=== PATIENT | male | born 1995 | race Caucasian/White ===

== ENCOUNTER 2017-10-18 20:09 | Emergency (ER) | payer BC, OTHER ==
[~2017-10-18] VITALS: Ht 185.4 cm; Wt 83.9 kg
[~2017-10-18 20:09] MED LIST: SULF1TAB38 PO
--- NOTE | 2017-10-18 20:48 | ED Neck-Back Pain/Injury ---
General Chief Complaint: Head/Cervical Problems Stated Complaint: HEAD INJ Nursing Triage Note: PATIENT STATES THAT HE WIPED OUT WHILE LONGBOARDING TODAY WHEN HIS BOARD HIT A PATCH OF GRAVEL. NO LOSS OF CONSCIOUSNESS. THERE ARE ABRASIONS TO HIS POSTERIOR SIDE OF HIS HEAD. 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 Pt states he was going "too fast" and flipped off of his longboard and rolled a couple of times, states that he had ~ a 1 sec LOC and was temporarily unable to move any extremities. Currently reports GRANADOS, neck pain, chest wall pain but denies any new vision changes, n/v, loss of bowel/bladder function, hearing changes, or any other associated sx. Pt shortly thereafter got up and walked a few blocks until someone was able to pick him up and bring him here. Pt states that he did smoke some marijuana prior to longboarding this evening. Pt placed in C-Collar here in ED during exam. (GHASSAN CHILDRESS MEDICAL STUDENT) Allergies and Home Medications Allergies Coded Allergies: No Known Drug Allergies (Unverified Allergy, Mild, 11/19/09) Home Medications Trimethoprim/Sulfamethoxazole 1 Ea Tablet, 1 EA PO BID, #20 FOR INFECTION Prescribed by: TANA LEDEZMA on 03/13/13 0536 Constitutional: No chills, No dizziness, No fever, other (Headache) EENTM: other (neck pain), No ear discharge, No hearing loss, No ear pain, No blurred vision, No double vision Respiratory: no symptoms reported, No cough, No dyspnea on exertion, No hemoptysis, No short of breath Cardiovascular: no symptoms reported, No chest pain, No edema, No palpitations Gastrointestinal: no symptoms reported, No abdominal pain, No constipation, No diarrhea, No loss of appetite, No nausea Genitourinary: no symptoms reported, No dysuria, No frequency Musculoskeletal: back pain, neck pain Skin: no symptoms reported, No change in color, No rash Psychiatric/Neurological: Headache, Denies Seizure (GHASSAN CHILDRESS MEDICAL STUDENT ) All Other Systems Reviewed Negative Unless Noted: Yes (Negative excepted noted.) (GHASSAN CHILDRESS MEDICAL STUDENT) Past Dobotdg-Vbgjsq-Kecdab Hx Patient Social History Alcohol Use: Rarely Uses Recreational Drug Use: Yes Drug of Choice: MARIJUANA Smoking Status: Current Everyday Smoker Type Used: Cigarettes 2nd Hand Smoke Exposure: Yes Recent Foreign Travel: No Contact w/Someone Who Travel: No Recent Infectious Disease Expo: No Recent Hopitalizations: No Physical Abuse: No Sexual Abuse: No (GHASSAN CHILDRESS MEDICAL STUDENT) Seasonal Allergies Seasonal Allergies: No (GHASSAN CHILDRESS MEDICAL STUDENT) Surgeries History of Surgeries: Yes Surgeries: Tonsillectomy (GHASSAN CHILDRESS MEDICAL STUDENT) Respiratory History of Respiratory Disorde: No (GHASSAN CHILDRESS MEDICAL STUDENT) Cardiovascular History of Cardiac Disorders: No (GHASSAN CHILDRESS MEDICAL STUDENT) Neurological History of Neurological Disord: Yes (GHASSAN CHILDRESS MEDICAL STUDENT) Reproductive System Sexually Transmitted Disease: No (GHASSAN CHILDRESS MEDICAL STUDENT) Genitourinary History of Genitourinary Disor: No (GHASSAN CHILDRESS MEDICAL STUDENT) Gastrointestinal History of Gastrointestinal Di: No (GHASSAN CHILDRESS MEDICAL STUDENT) Musculoskeletal History of Musculoskeletal Dis: No (GHASSAN CHILDRESS MEDICAL STUDENT) Endocrine History of Endocrine Disorders: No (GHASSAN CHILDRESS MEDICAL STUDENT) HEENT History of HEENT Disorders: No (GHASSAN CHILDRESS MEDICAL STUDENT) Cancer History of Cancer: No (GHASSAN CHILDRESS MEDICAL STUDENT) Psychosocial History of Psychiatric Problem: No Suicide Risk Score: 0 (GHASSAN CHILDRESS MEDICAL STUDENT) Integumentary History of Skin or Integumenta: No (GHASSAN CHILDRESS MEDICAL STUDENT) Blood Transfusions History of Blood Disorders: No (GHASSAN CHILDRESS MEDICAL STUDENT) Physical Exam Vital Signs Vital Sign - Last 12Hours 10/18/17 20:16 Temp 98.2 Pulse 96 B/P (MAP) 130/89 (103) Pulse Ox 94 O2 Delivery Room Air (ELIU MCKINNEY MD) Vital Signs Capillary Refill : Less Than 3 Seconds (GHASSAN CHILDRESS MEDICAL STUDENT) Skin: Other (3x4 cm oval abraision on the R occiput) (GHASSAN CHILDRESS MEDICAL STUDENT) General Appearance: No Apparent Distress HEENT: PERRL/EOMI, TMs Normal (partially obscured by cerumen), Pharynx Normal, Other (no dental injury. Macerated skin with localized tenderness and edema on the occiput. 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 Patient reports he fell while long boarding within the wheels of his board went off the sidewalk. He struck the occiput of his head on the sidewalk and rolled. He has generalized discomfort on the anterior chest and neck. He has a macerated wound on the occiput of his head with slight oozing of blood. There is no laceration to repair. He reports it took several minutes for him to be able to get up and walk. He felt "paralyzed" for a brief period of time. He does not believe there was loss of consciousness and if there was it was only a matter of seconds. CT of the head and C-spine was unremarkable. Patient was offered pain medication but declined. Concussion precautions were reviewed prior to dismissal. (ELIU MCKINNEY MD) Diagnostic Imaging Diagonstic Imaging: CT Plain Films/CT/US/NM/MRI: c-spine, head Comments CT head and C-spine viewed by me and report reviewed. See report below: NAME: [facility] REC#: [id number] PT STATUS: REG ER : 1995 PHYSICIAN: ELIU MCKINNEY MD ADMIT DATE: 10/18/17/ER Signed Date of Exam: 10/18/17 CT HEAD/CERVICAL SPINE WO PROCEDURE: CT head and CT cervical spine without contrast. TECHNIQUE: Multiple contiguous axial images were obtained through the brain and cervical spine without the use of intravenous contrast. Sagittal and coronal reformations through the cervical spine were then performed. INDICATION: Fall. Head laceration with headache and neck pain. FINDINGS: There is no CT evidence of acute intracranial hemorrhage. There is no evidence of abnormal extra-axial fluid collection. There is no mass effect or shift. Ventricles are appropriate in size and configuration. The basilar cisterns are patent. Escalante-white differentiation appears preserved. There is no calvarial fracture demonstrated. The mastoid air cells appear clear. The paranasal sinuses appear clear. The orbital contents are unremarkable. There appears to be a small degree of soft tissue swelling overlying the right parietal region. Cervical spine demonstrates reversal of the cervical lordosis but the alignment of the cervical spine is normal. There is normal alignment of the craniocervical junction with a normal relationship of the lateral masses of C1 and C2. The facets are normally aligned. There is no abnormal facet joint or disc space widening. There is no abnormal thickening of the prevertebral soft tissues. The vertebral body heights appear maintained. There is no acute cervical spine fracture demonstrated. Lung apices are clear. Soft tissues of the neck demonstrate no significant abnormality. IMPRESSION: 1. No CT evidence of an acute intracranial abnormality. 2. No evidence of calvarial fracture 3. Reversal of the cervical lordosis without evidence of traumatic malalignment or acute cervical spine fracture. Dictated by: Dictated on workstation # [id number] Dict: 10/18/172101 Trans: 10/18/172158 Interpreted by: EMY HARRIS MD Electronically signed by: EMY HARRIS MD 10/18/172158 (ELIU MCKINNEY MD) Departure Impression Impression: Primary Impression: Concussion without loss of consciousness Qualified Codes: S06.0X0A - Concussion without loss of consciousness, initial encounter Disposition: 01 HOME, SELF-CARE Condition: Stable Departure-Patient Inst. Decision time for Depature: 22:00 (ELIU MCKINNEY MD) Referrals: NO,LOCAL PHYSICIAN (PCP/Family) Primary Care Physician Patient Instructions: Concussion, Adult (DC) Add. Discharge Instructions: Observe mental rest over the next couple of days. This includes relative rest from mental stress, screen time, work, etc. Avoid activities that could cause further head injury for at least 7 days after you're concussion symptoms resolve. These activities would include use of ladders or any heights, long boarding, bike riding, contact sports, etc. Return to care promptly if you have worsening of symptoms including change of vision, confusion, worsening headache, nausea, irritability, significant sleep disturbances, or anything else you feel is unusual. Please follow-up with your doctor within one week. May use ibuprofen up to 600 mg every 6 hours as needed for pain. You may also use Tylenol (acetaminophen) up to 1000 mg every 6 hours as needed for additional pain relief. You may apply ice to your head contusion in 20 minute intervals as needed. All discharge instructions reviewed with patient and/or family. Voiced understanding. GHASSAN CHILDRESS MEDICAL STUDENT Oct 18, 2017 20:48 ELIU MCKINNEY MD Oct 18, 2017 22:00
--- NOTE | 2017-10-18 21:11 | Diagnostic Imaging Report ---
PROCEDURE: CT head and CT cervical spine without contrast. TECHNIQUE: Multiple contiguous axial images were obtained through the brain and cervical spine without the use of intravenous contrast. Sagittal and coronal reformations through the cervical spine were then performed. INDICATION: Fall. Head laceration with headache and neck pain. FINDINGS: There is no CT evidence of acute intracranial hemorrhage. There is no evidence of abnormal extra-axial fluid collection. There is no mass effect or shift. Ventricles are appropriate in size and configuration. The basilar cisterns are patent. Escalante-white differentiation appears preserved. There is no calvarial fracture demonstrated. The mastoid air cells appear clear. The paranasal sinuses appear clear. The orbital contents are unremarkable. There appears to be a small degree of soft tissue swelling overlying the right parietal region. Cervical spine demonstrates reversal of the cervical lordosis but the alignment of the cervical spine is normal. There is normal alignment of the craniocervical junction with a normal relationship of the lateral masses of C1 and C2. The facets are normally aligned. There is no abnormal facet joint or disc space widening. There is no abnormal thickening of the prevertebral soft tissues. The vertebral body heights appear maintained. There is no acute cervical spine fracture demonstrated. Lung apices are clear. Soft tissues of the neck demonstrate no significant abnormality. IMPRESSION: 1. No CT evidence of an acute intracranial abnormality. 2. No evidence of calvarial fracture 3. Reversal of the cervical lordosis without evidence of traumatic malalignment or acute cervical spine fracture. Dictated by: Dictated on workstation # [id number]
[2017-10-18] MEDS ORDERED: TETANUS,DIPTH,PERTUSS P/F (BOOSTRIX) 0.5 ML VIAL IM ONE (22:00)
[2017-10-18 22:16] VITALS: BP 130/89
--- OUTSIDE RECORDS SUMMARY | 2017-10-19 13:35 | XMS REPORT ---
Author Author MERY JONES [facility] Address [address] [place] [address] Care Team Providers Care Shaper Machine Hand Name Role Phone MERY JONES Unavailable PROBLEMS Type Condition ICD9-CM Code [id number] Code Onset Dates Condition Status SNOMED Code Problem Addiction, marijuana F12.20 Active 44481529 Problem Oppositional defiant disorder 313.81 Active 81892083 ALLERGIES Unknown Allergies SOCIAL HISTORY No smoking Hx information available PLAN OF CARE Activity Details Follow Up 1 Week Reason: VITAL SIGNS MEDICATIONS Unknown Medications RESULTS No Results PROCEDURES Procedure Date Ordered Related Diagnosis Body Site Psychotherapy, patient &/family, 60 minutes, established patient Nov 03, 2016 IMMUNIZATIONS No Known Immunizations
--- OUTSIDE RECORDS SUMMARY | 2017-10-19 13:35 | XMS REPORT ---
Author Author MERY JONES [facility] Address [address] [place] [address] Care Team Providers Care Board Lining Machine Operator Name Role Phone MERY JONES Unavailable PROBLEMS Type Condition ICD9-CM Code [id number] Code Onset Dates Condition Status SNOMED Code Problem Addiction, marijuana F12.20 Active 39648970 Problem Oppositional defiant disorder 313.81 Active 77560312 ALLERGIES No Information SOCIAL HISTORY Never Assessed PLAN OF CARE VITAL SIGNS MEDICATIONS Unknown Medications RESULTS No Results PROCEDURES No Known procedures IMMUNIZATIONS No Known Immunizations
--- OUTSIDE RECORDS SUMMARY | 2017-10-19 13:35 | XMS REPORT ---
Author Author MERY JONES [facility] Address [address] [place] [address] Care Team Providers Care Label Stitcher Name Role Phone MERY JONES Unavailable PROBLEMS Type Condition ICD9-CM Code [id number]-NR Code Onset Dates Condition Status SNOMED Code Problem Addiction, marijuana F12.20 Active 30633222 Problem Oppositional defiant disorder 313.81 Active 43687948 ALLERGIES Unknown Allergies SOCIAL HISTORY No smoking Hx information available PLAN OF CARE VITAL SIGNS MEDICATIONS Unknown Medications RESULTS No Results PROCEDURES No Known procedures IMMUNIZATIONS No Known Immunizations
--- OUTSIDE RECORDS SUMMARY | 2017-10-19 13:35 | XMS REPORT ---
Author Author MERY JONES [facility] Address [address] [place] [address] Care Team Providers Care Business Excellence Leader Name Role Phone MERY JONES Unavailable PROBLEMS Type Condition ICD9-CM Code IAV85-ZK Code Onset Dates Condition Status SNOMED Code Problem Addiction, marijuana F12.20 Active 97000305 Problem Oppositional defiant disorder 313.81 Active 94666238 ALLERGIES Unknown Allergies SOCIAL HISTORY No smoking Hx information available PLAN OF CARE Activity Details Follow Up 1 Week Reason: VITAL SIGNS MEDICATIONS Unknown Medications RESULTS No Results PROCEDURES Procedure Date Ordered Related Diagnosis Body Site Psychotherapy, patient &/family, 45 minutes, established patient Oct 20, 2016 IMMUNIZATIONS No Known Immunizations
--- OUTSIDE RECORDS SUMMARY | 2017-10-19 13:35 | XMS REPORT ---
Author Author MERY JONES Organization [employer] Address Unknown Phone Unavailable Care Team Providers Care Node Js Developer Name Role Phone MERY JONES Unavailable Allergies No Known Allergies Problems Problem Type Condition Code Onset Dates Condition Status Assessment Counseling on substance use and abuse Z71.89 Active Problem Oppositional defiant disorder 313.81 Active Medications No Known Medications Procedures Procedure Coding System Code Date ALCOHOL AND/OR DRUG ASSESSMENT CPT-4 H0001 Jul 19, 2016 Results No Known Results Summary Purpose [employer] Submission
--- OUTSIDE RECORDS SUMMARY | 2017-10-19 13:35 | XMS REPORT ---
Author Author MERY JONES [facility] Address [address] [place] [address] Care Team Providers Care Form Tamper Name Role Phone MERY JONES Unavailable PROBLEMS Type Condition ICD9-CM Code ZWW47-UZ Code Onset Dates Condition Status SNOMED Code Problem Addiction, marijuana F12.20 Active 36470133 Problem Oppositional defiant disorder 313.81 Active 32928290 ALLERGIES Unknown Allergies SOCIAL HISTORY No smoking Hx information available PLAN OF CARE Activity Details Follow Up 1 Week Reason: VITAL SIGNS MEDICATIONS Unknown Medications RESULTS No Results PROCEDURES Procedure Date Ordered Related Diagnosis Body Site Psychotherapy, patient &/family, 60 minutes, established patient Oct 26, 2016 IMMUNIZATIONS No Known Immunizations
--- OUTSIDE RECORDS SUMMARY | 2017-10-19 13:35 | XMS REPORT ---
Author Author MERY JONES Organization [facility] Address [address] [place] [address] Care Team Providers Care Gas Turbine Mechanic Name Role Phone MERY JONES Unavailable PROBLEMS Type Condition ICD9-CM Code BUA75-GW Code Onset Dates Condition Status SNOMED Code Problem Addiction, marijuana F12.20 Active 49121935 Problem Oppositional defiant disorder 313.81 Active 98370059 ALLERGIES No Information SOCIAL HISTORY Never Assessed PLAN OF CARE Activity Details Follow Up 1 Week Reason: VITAL SIGNS MEDICATIONS Unknown Medications RESULTS No Results PROCEDURES Procedure Date Ordered Result Body Site Psychotherapy, patient &/family, 30 minutes, established patient Dec 02, 2016 IMMUNIZATIONS No Known Immunizations
--- OUTSIDE RECORDS SUMMARY | 2017-10-19 13:35 | XMS REPORT ---
Author Author MERY JONES [facility] Address [address] [place] [address] Care Team Providers Care Weapons Engineer Name Role Phone MERY JONES Unavailable PROBLEMS Type Condition ICD9-CM Code EUS58-CE Code Onset Dates Condition Status SNOMED Code Problem Addiction, marijuana F12.20 Active 41982212 Problem Oppositional defiant disorder 313.81 Active 81035552 ALLERGIES No Information SOCIAL HISTORY Never Assessed PLAN OF CARE Activity Details Follow Up 2 - 3 Days Reason: VITAL SIGNS MEDICATIONS Unknown Medications RESULTS No Results PROCEDURES Procedure Date Ordered Result Body Site Psychotherapy, patient &/family, 45 minutes, established patient Nov 30, 2016 IMMUNIZATIONS No Known Immunizations
== END 2017-10-18 22:16 | disposition home or self-care (01) ==
LOC: EDUNIT# 20:09 → ER 20:12
DX: S06.0X1A Concussion with loss of consciousness of 30 minutes or less, initial encounter (principal); F17.210 Nicotine dependence, cigarettes, uncomplicated; Z23 Encounter for immunization; Z90.89 Acquired absence of other organs; V00.131A Fall from skateboard, initial encounter; Y93.51 Activity, roller skating (inline) and skateboarding
CPT/HCPCS: 70450; 72125; 99282

== ENCOUNTER → 2019-01-19 | Outpatient (CLI) | payer BC, OTHER ==
[~2019-01-19] MED LIST changes: +CATHETER FLUSH 10 ML SYR IV PRN; +HOLD METFORMIN - RECEIVED CONTRAST 20 ML VIAL IV SCH; +IOHEXOL 350 MG/ML 100 ML (OMNIPAQUE 350) VIAL IV ONE
--- NOTE | 2019-01-19 17:54 | Diagnostic Imaging Report ---
PROCEDURE: CT lumbar spine without contrast. TECHNIQUE: Multiple contiguous axial images were obtained through the lumbar spine without the use of intravenous contrast. Sagittal and coronal reformations were then performed. Auto Exposure Controls were utilized during the CT exam to meet ALARA standards for radiation dose reduction. INDICATION: Low back pain. COMPARISON: None. FINDINGS: Alignment is normal. There is no subluxation or fracture. No obvious broad-based disc bulge or herniation is seen. There is no osseous lesion or degeneration. There is no paraspinous mass. Visualized SI joints are normal. IMPRESSION: Negative CT of the lumbar spine. Report was called to Masha Ramirez APRN at 5:53 p.m. by pavithra (for COLLEEN). Dictated by: Dictated on workstation # [id number]
--- NOTE | 2019-01-19 17:54 | Diagnostic Imaging Report ---
PROCEDURE: CT pelvis without contrast. TECHNIQUE: Multiple contiguous axial images were obtained through the pelvis without the use of intravenous contrast. Sagittal and coronal reformations were performed. Auto Exposure Controls were utilized during the CT exam to meet ALARA standards for radiation dose reduction. INDICATION: Trauma, pelvic pain. COMPARISON: None. FINDINGS: The hips are symmetrical bilaterally. There is no fracture or dislocation. SI joints are intact. There is no osseous lesion. The visualized sacrum and coccyx are grossly normal. There is some minimal fluid within the subcutaneous tissues posterior to the paraspinous muscles. This could represent a hematoma. There is no hyperdense fluid that would indicate active hemorrhage. IMPRESSION: 1. No fracture or dislocation. 2. Subcutaneous hematoma as described. Report was called to Masha Ramirez APRN at 5:53 p.m. by pavithra (for COLLEEN). Dictated by: Dictated on workstation # [id number]
--- NOTE | 2019-01-19 17:55 | Diagnostic Imaging Report ---
PROCEDURE: CT abdomen and pelvis with contrast. TECHNIQUE: Multiple contiguous axial images were obtained through the abdomen and pelvis after administration of intravenous contrast. Auto Exposure Controls were utilized during the CT exam to meet ALARA standards for radiation dose reduction. INDICATION: Trauma. COMPARISON: None. FINDINGS: Lung bases are clear. The gallbladder, solid organs, vascular structures, and bowel are normal. There is no free air or free fluid. No hematoma is identified. There is some fluid in the subcutaneous tissues across the lumbar region at the midline. No hyperdense fluid is seen that would indicate an active hemorrhage. IMPRESSION: 1. Subcutaneous fluid posterior to the lumbar region. 2. No underlying bony abnormality. 3. No intra-abdominal trauma identified. Report was called to Masha Ramirez APRN at 5:53 p.m. by pavithra (for COLLEEN). Dictated by: Dictated on workstation # [id number]
== END ==
LOC: RAD 16:38
PROVIDERS: ATTEND Nurse Practitioner Family
DX: S30.0XXA Contusion of lower back and pelvis, initial encounter (principal); V03.99XA Pedestrian with other conveyance injured in collision with car, pick-up truck or van, unspecified whether traffic or nontraffic accident, initial encounter
CPT/HCPCS: 72131; 72192; 74177

== ENCOUNTER 2022-06-28 14:45 | Emergency (ER) | payer BC ==
[~2022-06-28] VITALS: Ht 185.5 cm; Wt 88.9 kg
[~2022-06-28 14:45] MED LIST changes: -CATHETER FLUSH 10 ML SYR IV PRN; -HOLD METFORMIN - RECEIVED CONTRAST 20 ML VIAL IV SCH; -IOHEXOL 350 MG/ML 100 ML (OMNIPAQUE 350) VIAL IV ONE
[2022-06-28 15:37] LABS: HEMATOCRIT 46 % (40-54); MEAN CORPUSCULAR VOLUME 91 fL (80-99); MEAN PLATELET VOLUME 9.6 fL (9.0-12.2)
[2022-06-28 15:39] LABS: BASOPHILS % (AUTO) 0 % (0-10); EOSINOPHILS # (AUTO) 0.1 10^3/uL (0.0-0.3); EOSINOPHILS % (AUTO) 1 % (0-10); HEMOGLOBIN 15.5 g/dL (13.3-17.7); LYMPHOCYTES # (AUTO) 2.8 10^3/uL (1.0-4.0); LYMPHOCYTES % (AUTO) 39 % (12-44); MEAN CORPUSCULAR HEMOGLOBIN 31 pg (25-34); MEAN CORPUSCULAR HGB CONC 34 g/dL (32-36); MONOCYTES # (AUTO) 0.7 10^3/uL (0.0-1.0); MONOCYTES % (AUTO) 10 % (0-12); NEUTROPHILS # (AUTO) 3.5 10^3/uL (1.8-7.8); NEUTROPHILS % (AUTO) 49 % (42-75); PLATELET COUNT 265 10^3/uL (130-400)
[2022-06-28 15:43] LABS: SMEAR SCAN COMMENT YES
--- NOTE | 2022-06-28 15:43 | ED Abdominal Pain ---
General Chief Complaint: Abdominal/GI Problems Stated Complaint: ABDOMINAL PAIN Nursing Triage Note: PT AMB TO TRIAGE WITH COMPLAINT OF ABD PAIN, CONSTIPATION. STATES HE HAS HAD SUPER THIN STOOLS. PT FEELS LIKE HE HAS A HERNIA. STATES HAS BEEN GOING ON FOR A WEEK. Source of Information: Patient Exam Limitations: No Limitations History of Present Illness Date Seen by Provider: Jun 28, 2022 Time Seen by Provider: 15:40 Initial Comments To ER with reports of umbilical abdominal pain and constipation. He first noticed this about a week ago. He has had a small bulge at the umbilicus. No nausea or vomiting. Rates the pain a 2 out of 10. Sometimes it increases to a 4 out of 10. Normally he has soft but well formed stools. Over the past few days he has had infrequent stools softer than usual and less volume than usual. Timing/Duration: 6-7 Days Severity/Quality: Moderate Location: Periumbilical Radiation: No Radiation Activities at Onset: None Associated Symptoms: Denies Symptoms Allergies and Home Medications Allergies Coded Allergies: No Known Drug Allergies (Unverified , 11/19/09) Patient Home Medication List Home Medication List Reviewed: Yes Trimethoprim/Sulfamethoxazole (Bactrim Ds) 1 Ea Tablet, 1 EA PO BID Prescribed by: TANA LEDEZMA on 03/13/13 5458 Review of Systems Review of Systems Constitutional: see HPI EENTM: No Symptoms Reported Respiratory: No Symptoms Reported Cardiovascular: No Symptoms Reported Gastrointestinal: See HPI Genitourinary: No Symptoms Reported Musculoskeletal: no symptoms reported Skin: no symptoms reported Psychiatric/Neurological: No Symptoms Reported Endocrine: No Symptoms Reported Hematologic/Lymphatic: No Symptoms Reported Past Otwzbht-Qpyatj-Toivvo Hx Patient Social History Tobacco Use?: No Use of E-Cig and/or Vaping dev: Yes E-Cig or Vaping type used: Nicotine Substance use?: Yes Substance type: Marijuana Alcohol Use?: No Pt feels they are or have been: No Seasonal Allergies Seasonal Allergies: No Past Medical History Surgeries: Yes Tonsillectomy Respiratory: No Cardiac: No Neurological: Yes Sexually Transmitted Disease: No Genitourinary: No Gastrointestinal: No Musculoskeletal: No Endocrine: No HEENT: No Cancer: No Psychosocial: No Integumentary: No Blood Disorders: No Physical Exam Vital Signs Vital Signs - First Documented 06/28/22 14:51 Pulse 54 Resp 16 B/P (MAP) 143/84 (103) Pulse Ox 99 O2 Delivery Room Air Capillary Refill : Less Than 3 Seconds Height/Weight/BMI Height: 6'1.00" Weight: 185lbs. 0oz. 83.508656lp; 25.00 BMI Method:Stated General Appearance: WD/WN, no apparent distress HEENT: PERRL/EOMI, normal ENT inspection Respiratory: no respiratory distress, no accessory muscle use Cardiovascular: regular rate, rhythm, no murmur Gastrointestinal: normal bowel sounds, non tender, soft, other (There is a small palpable defect in the abdominal wall musculature at the umbilicus with a small bulge easily reducible.) Extremities: normal range of motion, non-tender Neurologic/Psychiatric: alert, normal mood/affect, oriented x 3 Skin: normal color, warm/dry Progress/Results/Core Measures Results/Orders Lab Results Laboratory Tests Test 06/28/22 15:17 06/28/22 15:29 Range/Units White Blood Count 7.0 4.3-11.0 10^3/uL Red Blood Count 5.01 4.30-5.52 10^6/uL Hemoglobin 15.5 13.3-17.7 g/dL Hematocrit 46 40-54 % Mean Corpuscular Volume 91 80-99 fL Mean Corpuscular Hemoglobin 31 25-34 pg Mean Corpuscular Hemoglobin Concent 34 32-36 g/dL Red Cell Distribution Width 12.0 10.0-14.5 % Platelet Count 265 130-400 10^3/uL Mean Platelet Volume 9.6 9.0-12.2 fL Immature Granulocyte % (Auto) 0 % Neutrophils (%) (Auto) 49 42-75 % Lymphocytes (%) (Auto) 39 12-44 % Monocytes (%) (Auto) 10 0-12 % Eosinophils (%) (Auto) 1 0-10 % Basophils (%) (Auto) 0 0-10 % Neutrophils # (Auto) 3.5 1.8-7.8 10^3/uL Lymphocytes # (Auto) 2.8 1.0-4.0 10^3/uL Monocytes # (Auto) 0.7 0.0-1.0 10^3/uL Eosinophils # (Auto) 0.1 0.0-0.3 10^3/uL Basophils # (Auto) 0.0 0.0-0.1 10^3/uL Immature Granulocyte # (Auto) 0.0 0.0-0.1 10^3/uL Percent Immature Platelet Fraction 3.5 0.0-7.6 % Sodium Level 139 135-145 MMOL/L Potassium Level 4.2 3.6-5.0 MMOL/L Chloride Level 102 98-107 MMOL/L Carbon Dioxide Level 24 21-32 MMOL/L Anion Gap 13 5-14 MMOL/L Blood Urea Nitrogen 12 7-18 MG/DL Creatinine 0.91 0.60-1.30 MG/DL Estimat Glomerular Filtration Rate 118 BUN/Creatinine Ratio 13 Glucose Level 89 70-105 MG/DL Calcium Level 9.6 8.5-10.1 MG/DL Corrected Calcium 8.5-10.1 MG/DL Total Bilirubin 0.9 0.1-1.0 MG/DL Aspartate Amino Transf (AST/SGOT) 22 5-34 U/L Alanine Aminotransferase (ALT/SGPT) 18 0-55 U/L Alkaline Phosphatase 55 40-136 U/L Total Protein 7.6 6.4-8.2 GM/DL Albumin 4.8 H 3.2-4.5 GM/DL Smear Scan YES My Orders Orders - LILLIE PINA APRN Ct Abdomen/Pelvis Wo (06/28/22 15:23) Cbc With Automated Diff (06/28/22 15:23) Comprehensive Metabolic Panel (06/28/22 15:23) Vital Signs/I&O 06/28/22 14:51 Pulse 54 Resp 16 B/P (MAP) 143/84 (103) Pulse Ox 99 O2 Delivery Room Air Blood Pressure Mean: 103 Departure Communication (Admissions) NAME: [facility] REC#: [id number] PT STATUS: REG ER : 1995 PHYSICIAN: LILLIE PINA APRN ADMIT DATE: 06/28/22/ER Signed Date of Exam:06/28/22 CT ABDOMEN/PELVIS WO PROCEDURE: CT abdomen and pelvis without contrast. TECHNIQUE: Multiple contiguous axial images were obtained through the abdomen and pelvis without the use of intravenous contrast. Auto Exposure Controls were utilized during the CT exam to meet ALARA standards for radiation dose reduction. INDICATION: Umbilical hernia, bowel changes. FINDINGS: The heart size is normal. The lung bases are clear. Liver is normal in size without focal lesions. Gallbladder is unremarkable. There is no biliary ductal dilatation. Spleen is normal. Pancreas and adrenal glands are unremarkable. The kidneys are normal in appearance. There is no nephrolithiasis or obstructive uropathy. The aorta is nonaneurysmal. The bowel gas pattern is nonspecific. The appendix is normal. There is no free air. There is no ascites. There are no focal inflammatory changes. Bladder is normal. There is no pelvic mass, adenopathy, or free fluid. The osseous structures are unremarkable apart from mild degenerative change. IMPRESSION: Unremarkable gallbladder and appendix. There is no evidence of nephrolithiasis or obstructive uropathy. No acute abnormality in the abdomen or pelvis. Dictated by: Dictated on workstation # [id number] Dict: 06/28/22 1608 Trans: 06/28/22 1617 [id number] [id number] Interpreted by: ZELALEM KIMBLE MD Electronically signed by: ZELALEM KIMBLE MD 06/28/22 1617 Impression Primary Impression: Umbilical hernia without obstruction and without gangrene Disposition: HOME, SELF-CARE Condition: Stable Departure-Patient Inst. Decision time for Depature: 15:42 Referrals: RASHAUN GONZALES BRETT D DO KIDO, TAKAAKI MD NO,LOCAL PHYSICIAN (PCP) Primary Care Physician Patient Instructions: Umbilical Hernia, Adult Add. Discharge Instructions: 1. Call a surgeon of your choosing to discuss treatment of this umbilical hernia which includes no treatment, acknowledging that it exists and just dealing with it. Alternatively you can have this repaired surgically after discussion with a surgeon. All discharge instructions reviewed with patient and/or family. Voiced understanding. LILLIE PINA [employer] Jun 28, 2022 15:43
[2022-06-28 15:44] LABS: ALBUMIN 4.8 GM/DL (3.2-4.5)
[2022-06-28 15:45] LABS: CHLORIDE 102 MMOL/L (98-107); POTASSIUM 4.2 MMOL/L (3.6-5.0); SODIUM 139 MMOL/L (135-145)
[2022-06-28 15:46] LABS: CALCIUM 9.6 MG/DL (8.5-10.1)
[2022-06-28 15:47] LABS: GLUCOSE 89 MG/DL (70-105); TOTAL PROTEIN 7.6 GM/DL (6.4-8.2)
[2022-06-28 15:48] LABS: CARBON DIOXIDE 24 MMOL/L (21-32)
[2022-06-28 15:49] LABS: BILIRUBIN,TOTAL 0.9 MG/DL (0.1-1.0)
[2022-06-28 15:50] LABS: ALKALINE PHOSPHATASE 55 U/L (40-136)
[2022-06-28 15:51] LABS: CREATININE SERUM 0.91 MG/DL (0.60-1.30); GFR ESTIMATED 118
[2022-06-28 15:52] LABS: BUN/CREATININE RATIO 13
[2022-06-28 15:53] LABS: ALANINE AMINOTRANSFERASE 18 U/L (0-55)
--- NOTE | 2022-06-28 16:13 | Diagnostic Imaging Report ---
PROCEDURE: CT abdomen and pelvis without contrast. TECHNIQUE: Multiple contiguous axial images were obtained through the abdomen and pelvis without the use of intravenous contrast. Auto Exposure Controls were utilized during the CT exam to meet ALARA standards for radiation dose reduction. INDICATION: Umbilical hernia, bowel changes. FINDINGS: The heart size is normal. The lung bases are clear. Liver is normal in size without focal lesions. Gallbladder is unremarkable. There is no biliary ductal dilatation. Spleen is normal. Pancreas and adrenal glands are unremarkable. The kidneys are normal in appearance. There is no nephrolithiasis or obstructive uropathy. The aorta is nonaneurysmal. The bowel gas pattern is nonspecific. The appendix is normal. There is no free air. There is no ascites. There are no focal inflammatory changes. Bladder is normal. There is no pelvic mass, adenopathy, or free fluid. The osseous structures are unremarkable apart from mild degenerative change. IMPRESSION: Unremarkable gallbladder and appendix. There is no evidence of nephrolithiasis or obstructive uropathy. No acute abnormality in the abdomen or pelvis. Dictated by: Dictated on workstation # [id number]
[2022-06-28 16:48] VITALS: BP 130/75
== END 2022-06-28 16:50 | disposition home or self-care (01) ==
LOC: EDUNIT# 14:45 → ER 14:49
DX: K42.9 Umbilical hernia without obstruction or gangrene (principal); F17.290 Nicotine dependence, other tobacco product, uncomplicated
CPT/HCPCS: 36415; 74176; 80053; 85025